=== PATIENT | female | born 1995 | race Caucasian/White ===

== ENCOUNTER 2017-10-20 14:40 | Emergency (ER) | payer SELFPAY ==
[2017-10-20 14:48] VITALS: BP 121/82
--- NOTE | 2017-10-20 16:06 | UC ---
Throat Pain/Nasal Gary HPI - HPI Summary HPI Summary: 21yo WF c/o sore throat associated with nasal congestion PND x 2 days - History of Current Complaint Chief Complaint: UCRespiratory Stated Complaint: THROAT PAIN Time Seen by Provider: 10/20/17 15:22 Hx Obtained From: Patient Hx Last Menstrual Period: 10/01/17 Onset/Duration: Sudden Onset Cough: Nonproductive Associated Signs & Symptoms: Positive: Negative - Allergies/Home Medications Allergies/Adverse Reactions: Allergies Allergy/AdvReac Type Severity Reaction Status Date / Time No Known Allergies Allergy Verified 10/20/17 14:50 PMH/Surg Hx/FS Hx/Imm Hx - Additional Past Medical History Additional PMH: none - Surgical History Surgical History: Yes Surgery Procedure, Year, and Place: r ankle endometriosis. AFIB WITH ABLASION - Family History Known Family History: Positive: None - Social History Alcohol Use: None Substance Use Type: None Smoking Status (MU): Never Smoked Tobacco Review of Systems Constitutional: Negative Skin: Negative Eyes: Negative ENT: Sore Throat, Nasal Discharge, Sinus Congestion Respiratory: Negative Cardiovascular: Negative Gastrointestinal: Negative Genitourinary: Negative Motor: Negative Neurovascular: Negative Musculoskeletal: Negative Neurological: Negative Psychological: Negative Is Patient Immunocompromised?: No All Other Systems Reviewed And Are Negative: Yes Physical Exam Triage Information Reviewed: Yes Vital Signs: Initial Vital Signs Temp 37.4 C 10/20/17 14:43 Pulse 94 10/20/17 14:43 Resp 15 10/20/17 14:43 BP 121/82 10/20/17 14:43 Pulse Ox 100 10/20/17 14:43 Eye Exam: Normal ENT: Positive: Pharyngeal erythema, Nasal congestion, Nasal drainage, TMs normal , Other - one faint 2x3mm ulcer seen around right tonsil, otherwise NO exudates seen Dental Exam: Normal Neck exam: Normal Neck: Positive: 1 Respiratory Exam: Normal Cardiovascular Exam: Normal Abdominal Exam: Normal Musculoskeletal Exam: Normal Neurological Exam: Normal Psychological Exam: Normal Skin Exam: Normal Throat Pain/Nasal Course/Dx - Course Course Of Treatment: Rapid strep neg, salt gargling, pseudophed 12-ER for congestion, throat cx sent out - Differential Dx/Diagnosis Provider Diagnoses: pharyngitis Discharge - Discharge Plan Condition: Stable Disposition: HOME Prescriptions: Pseudoephedrine HCL ER TAB* [Sudafed 12 Hour*] 120 mg PO BID 5 Days #10 tab.er Patient Education Materials: Pharyngitis (ED) Referrals: No Primary Care Phys,NOPCP [Primary Care Provider] - Additional Instructions: as tolerated
== END 2017-10-20 16:40 | disposition home or self-care (01) ==
LOC: UCEAST 14:40
DX: J02.9 Acute pharyngitis, unspecified (principal)
CPT/HCPCS: 87070; 87651; 99212; G0463

== ENCOUNTER 2018-04-08 12:49 | Inpatient (IN) | payer BC ==
[2018-04-08 13:34] LABS: ABS Basophils 0 10^3/ul (0-0.2); ABS Eosinophils 0 10^3/ul (0-0.6); ABS Monocytes 0.7 10^3/ul (0-0.8); ABS Neutrophils 4.4 10^3/ul (1.5-7.7); ABS Nucleated RBC 0 10^3/ul; Eosinophil % 0.6 % (0-6); Hematocrit 39 % (35-47); Hemoglobin 13.3 g/dl (12.0-16.0); Lymphocyte % 27.9 % (25-47); Mean Corpuscular HGB Conc 34 g/dl (31-36); Mean Corpuscular Hemoglobin 32 pg (27-31); Mean Corpuscular Volume 92 fL (80-97); Mean Platelet Volume 8.3 um3 (7.4-10.4); Nucleated Red Blood Cells % 0; Platelet Count 281 10^3/ul (150-450); Red Blood Count 4.21 10^6/ul (4.00-5.40); Red Cell Distribution Width 13 % (10.5-15); White Blood Count 7.1 10^3/ul (3.5-10.8)
[2018-04-08 13:57] LABS: EGFR Non-African American 85.2 (>60)
[2018-04-08 14:10] LABS: Urine Appearance Cloudy; Urine Blood Negative (Negative); Urine Color Yellow; Urine Ketones Negative (Negative); Urine Protein Negative (Negative); Urine Specific Gravity 1.011 (1.010-1.030); Urine Urobilinogen Negative (Negative)
--- NOTE | 2018-04-08 16:04 | ED ---
Estefani Jones Rebecca, scribed for Mckenzie Neves MD on 04/08/18 at 1323 . Psychiatric Complaint - HPI Summary HPI Summary: Pt is a 22 y/o F accompanied by her older sister, Michelle, who presents to ED c/o depression. Pt reports that she is "just really sad all the time" and that she is "having breakdowns every single day" affecting her ability to work. Explains that she is "not herself," which is corroborated by her sister. Presents to the ED "for help." Notes fatigue and SIs described as "it's always there" without a plan as well as intermittent CP. Nurse's triage also reports decreased PO intake and recent weight loss of 18 pounds. Denies HIs and self harm. No PMHx suicide attempts. Has never been to a hospital due to mental health reasons before. Has a psychiatrist out [facility] last seen 1 week ago, and a therapist, Yoana Mendez, in [place] last seen 2 days ago. PMHx depression and anxiety , FHx depression and anxiety (mother). Is currently taking Natazia, Klonopin, Lamictal and Latuda after a recent medication change. LNMP 2 months ago ( believes missed the last month secondary to stress), no chance of . - History Of Current Complaint Chief Complaint: EDMentalHealth Time Seen by Provider: 04/08/18 13:06 Hx Obtained From: Patient, Family/Physically Impaired Teacher - sister Hx Last Menstrual Period: 01/2018 ?: No Onset/Duration: Still Present Timing: Constant Severity Initially: Moderate Severity Currently: Moderate Character: Depressed Aggravating Factor(s): Nothing Alleviating Factor(s): Nothing Associated Signs And Symptoms: Positive: Appetite Change - Decreased Related History: Positive For: Prior Psychiatric Issues - Depression, anxiety Has Suicidal: Reports: Thoughts. Denies: With A Plan Has Homicidal: Denies: Thoughts - Allergies/Home Medications Allergies/Adverse Reactions: Allergies Allergy/AdvReac Type Severity Reaction Status Date / Time No Known Allergies Allergy Verified 10/20/17 14:50 Home Medications: Home Medications Estradiol Valerate/Dienogest [Natazia 28 Tablet] 1 tab PO DAILY 04/08/18 [ History Confirmed 04/08/18] PMH/Surg Hx/FS Hx/Imm Hx Previously Healthy: No Endocrine/Hematology History: Denies: Hx Thyroid Disease Cardiovascular History: Denies: Hx Hypertension Respiratory History: Denies: Hx Asthma Psychiatric History: Reports: Hx Anxiety, Hx Depression - Surgical History Surgery Procedure, Year, and Place: r ankle; endometriosis. AFIB WITH ABLATION Infectious Disease History: No Infectious Disease History: Denies: Hx Clostridium Difficile, Hx Hepatitis, Hx Human Immunodeficiency Virus (HIV), Hx of Known/Suspected MRSA, Hx Shingles, Hx Tuberculosis, Hx Known/ Suspected VRE, Hx Known/Suspected VRSA, History Other Infectious Disease, Traveled Outside the [place] in Last 30 Days - Family History Known Family History: Positive: Other - Depression (mother), anxiety (mother) - Social History Alcohol Use: None Substance Use Type: Reports: None Smoking Status (MU): Never Smoked Tobacco Review of Systems Positive: Fatigue, Other - Recent weight loss Positive: Chest Pain Respiratory: Negative Positive: Other - Decreased PO intake Musculoskeletal: Negative Skin: Negative Neurological: Negative Positive: Depressed, Other - SIs, not herself; NEGATIVE: HIs, self harm All Other Systems Reviewed And Are Negative: Yes Physical Exam - Summary Physical Exam Summary: Appearance: Well-appearing, moderate pain distress, well-nourished, tearful Skin: Warm, color reflects adequate perfusion, diaphoretic Head: Normal Head/Face inspection, atraumatic Eyes: Conjunctiva clear ENT: Normal inspection Neck: Supple, no nodes, no JVD Respiratory: Lungs clear, normal breath sounds, no respiratory distress Cardio: RRR, No murmur, pulses normal, brisk capillary refill Abdomen: Soft, nontender, umbilical piercings Bowel sounds: Present Musculoskeletal: Strength Intact/ROM intact, no calf tenderness, no edema. Psychological: Depressed and tearful Neuro: Alert, muscle tone normal, no focal deficit Triage Information Reviewed: Yes Vital Signs On Initial Exam: Initial Vitals Temp Pulse Resp BP Pulse Ox 98.3 F 110 19 131/104 100 04/08/18 12:50 04/08/18 12:50 04/08/18 12:50 04/08/18 12:50 04/08/18 12:50 Vital Signs Reviewed: Yes Diagnostics - Vital Signs Vital Signs Temp Pulse Resp BP Pulse Ox 04/08/18 12:50 98.3 F 110 19 131/104 100 - Laboratory Lab Results: Lab Results 04/08/18 04/08/18 04/08/18 Range/Units 13:24 13:24 13:38 WBC 7.1 (3.5-10.8) 10^3/ul RBC 4.21 (4.00-5.40) 10^6/ul Hgb 13.3 (12.0-16.0) g/dl Hct 39 (35-47) % MCV 92 (80-97) fL MCH 32 H (27-31) pg MCHC 34 (31-36) g/dl RDW 13 (10.5-15) % Plt Count 281 (150-450) 10^3/ul MPV 8.3 (7.4-10.4) um3 Neut % (Auto) 61.8 (38-83) % Lymph % (Auto) 27.9 (25-47) % Waller % (Auto) 9.2 H (0-7) % Eos % (Auto) 0.6 (0-6) % Baso % (Auto) 0.5 (0-2) % Absolute Neuts (auto) 4.4 (1.5-7.7) 10^3/ul Absolute Lymphs (auto) 2.0 (1.0-4.8) 10^3/ul Absolute Monos (auto) 0.7 (0-0.8) 10^3/ul Absolute Eos (auto) 0 (0-0.6) 10^3/ul Absolute Basos (auto) 0 (0-0.2) 10^3/ul Absolute Nucleated RBC 0 10^3/ul Nucleated RBC % 0 Sodium 141 (135-145) mmol/L Potassium 3.6 (3.5-5.0) mmol/L Chloride 107 (101-111) mmol/L Carbon Dioxide 25 (22-32) mmol/L Anion Gap 9 (2-11) mmol/L BUN 7 (6-24) mg/dL Creatinine 0.83 (0.51-0.95) mg/dL Est GFR ( Amer) 103.1 (>60) Est GFR (Non-Af Amer) 85.2 (>60) BUN/Creatinine Ratio 8.4 (8-20) Glucose 93 (70-100) mg/dL Calcium 9.7 (8.6-10.3) mg/dL Total Bilirubin 0.50 (0.2-1.0) mg/dL AST 19 (13-39) U/L ALT 13 (7-52) U/L Alkaline Phosphatase 47 (34-104) U/L Total Creatine Kinase 88 (10-223) U/L Total Protein 7.5 (6.4-8.9) g/dL Albumin 4.7 (3.2-5.2) g/dL Globulin 2.8 (2-4) g/dL Albumin/Globulin Ratio 1.7 (1-3) TSH 0.78 (0.34-5.60) mcIU/mL Beta HCG, Quant < 0.60 mIU/mL Urine Color Yellow Urine Appearance Cloudy Urine pH 8.0 (5-9) Ur Specific [place] 1.011 (1.010-1.030) Urine Protein Negative (Negative) Urine Ketones Negative (Negative) Urine Blood Negative (Negative) Urine Nitrate Negative (Negative) Urine Bilirubin Negative (Negative) Urine Urobilinogen Negative (Negative) Ur Leukocyte Esterase 1+ A (Negative) Urine WBC (Auto) Trace(0-5/hpf) (Absent) Urine RBC (Auto) 3+(>10/hpf) A (Absent) Ur Squamous Epith Cells Present A (Absent) Urine Bacteria Absent (Absent) Urine Glucose Negative (Negative) Urine Ascorbic Acid * A (Negative) Salicylates < 2.50 (<30) mg/dL Urine Opiates Screen (None Detect) Acetaminophen < 15 mcg/mL Ur Barbiturates Screen (None Detect) Ur Phencyclidine Scrn (None Detect) Ur Amphetamines Screen (None Detect) U Benzodiazepines Scrn (None Detect) Urine Cocaine Screen (None Detect) U Cannabinoids Screen (None Detect) Serum Alcohol < 10 (<10) mg/dL 04/08/18 Range/Units 13:38 WBC (3.5-10.8) 10^3/ul RBC (4.00-5.40) 10^6/ul Hgb (12.0-16.0) g/dl Hct (35-47) % MCV (80-97) fL MCH (27-31) pg MCHC (31-36) g/dl RDW (10.5-15) % Plt Count (150-450) 10^3/ul MPV (7.4-10.4) um3 Neut % (Auto) (38-83) % Lymph % (Auto) (25-47) % Waller % (Auto) (0-7) % Eos % (Auto) (0-6) % Baso % (Auto) (0-2) % Absolute Neuts (auto) (1.5-7.7) 10^3/ul Absolute Lymphs (auto) (1.0-4.8) 10^3/ul Absolute Monos (auto) (0-0.8) 10^3/ul Absolute Eos (auto) (0-0.6) 10^3/ul Absolute Basos (auto) (0-0.2) 10^3/ul Absolute Nucleated RBC 10^3/ul Nucleated RBC % Sodium (135-145) mmol/L Potassium (3.5-5.0) mmol/L Chloride (101-111) mmol/L Carbon Dioxide (22-32) mmol/L Anion Gap (2-11) mmol/L BUN (6-24) mg/dL Creatinine (0.51-0.95) mg/dL Est GFR ( Amer) (>60) Est GFR (Non-Af Amer) (>60) BUN/Creatinine Ratio (8-20) Glucose (70-100) mg/dL Calcium (8.6-10.3) mg/dL Total Bilirubin (0.2-1.0) mg/dL AST (13-39) U/L ALT (7-52) U/L Alkaline Phosphatase (34-104) U/L Total Creatine Kinase (10-223) U/L Total Protein (6.4-8.9) g/dL Albumin (3.2-5.2) g/dL Globulin (2-4) g/dL Albumin/Globulin Ratio (1-3) TSH (0.34-5.60) mcIU/mL Beta HCG, Quant mIU/mL Urine Color Urine Appearance Urine pH (5-9) Ur Specific [place] (1.010-1.030) Urine Protein (Negative) Urine Ketones (Negative) Urine Blood (Negative) Urine Nitrate (Negative) Urine Bilirubin (Negative) Urine Urobilinogen (Negative) Ur Leukocyte Esterase (Negative) Urine WBC (Auto) (Absent) Urine RBC (Auto) (Absent) Ur Squamous Epith Cells (Absent) Urine Bacteria (Absent) Urine Glucose (Negative) Urine Ascorbic Acid (Negative) Salicylates (<30) mg/dL Urine Opiates Screen None detected (None Detect) Acetaminophen mcg/mL Ur Barbiturates Screen None detected (None Detect) Ur Phencyclidine Scrn None detected (None Detect) Ur Amphetamines Screen None detected (None Detect) U Benzodiazepines Scrn None detected (None Detect) Urine Cocaine Screen None detected (None Detect) U Cannabinoids Screen Presumptive positive A (None Detect) Serum Alcohol (<10) mg/dL Result Diagrams: 04/08/18 13:24 04/08/18 13:24 Lab Statement: Any lab studies that have been ordered have been reviewed, and results considered in the medical decision making process. Re-Evaluation - Re-Evaluation First Eval Re-Evaluation Time: 14:09 Change: Unchanged Comment: continues depressed. Remains calm. Medically cleared. 1:1 observation maintained. Course/Dx - Course Course Of Treatment: One-to-one observation initiated once pt states that she is suicidal. Medically cleared for MHE at 1409. Upon completion of MHE and consultation with Dr. Sims, it has been determined that the pt will be admitted voluntarily with Dx of unspecified mood disorder, NOS. - Differential Dx/Clinical Impression Differential Diagnosis/HQI/PQRI: Positive: Anxiety, Bipolar Disorder, Depression , Suicidal Ideation Provider Diagnosis: Unspecified mood [affective] disorder Discharge - Sign-Out/Discharge Documenting (check all that apply): Discharge/Admit/Transfer - Admit - Discharge Plan Condition: Improved [facility] [place] Disposition and Condition Condition: IMPROVED Disposition: Psychiatric Facility [facility] [place] The documentation as recorded by the Estefani sue Rebecca accurately reflects the service I personally performed and the decisions made by Edinson washington Barbara J, MD.
[2018-04-08] MEDS ORDERED: LORazepam TAB(*) 1 MG PO ONE (19:20)
[2018-04-08] MEDS ORDERED: hydrOXYzine HCL TAB* 50 MG PO PRN (21:32)
[2018-04-08] MEDS: Lurasidone(*) 60 MG TAB PO SCH (22:35)
[2018-04-08] MEDS: [UNRECOGNIZED DRUG - OTHER] PO SCH (22:35)
[2018-04-08] MEDS: ESTRADIOL VALERATE PO SCH (22:35)
[2018-04-09] MEDS ORDERED: lamoTRIgine TAB(*) 25 MG PO SCH (09:00)
[2018-04-09] MEDS ORDERED: LORazepam TAB(*) 1 MG PO ONE (15:39)
[2018-04-09] MEDS ORDERED: LORazepam TAB(*) 1 MG ONE (15:39)
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
[2018-04-09] MEDS: Lurasidone(*) 60 MG TAB PO SCH (20:23)
[2018-04-09] MEDS: LORazepam TAB(*) 1 MG PO SCH (20:23)
[2018-04-09] MEDS: [UNRECOGNIZED DRUG - OTHER] PO SCH (20:24)
[2018-04-09] MEDS: ESTRADIOL VALERATE PO SCH (20:24)
[2018-04-10] MEDS: LORazepam TAB(*) 1 MG PO SCH ×3 (08:15→20:10)
[2018-04-10] MEDS: lamoTRIgine TAB(*) 25 MG PO SCH (08:15)
[2018-04-10] MEDS: [UNRECOGNIZED DRUG - OTHER] PO SCH (20:11)
[2018-04-10] MEDS: ESTRADIOL VALERATE PO SCH (20:11)
[2018-04-10] MEDS: Lurasidone(*) 60 MG TAB PO SCH (20:11)
[2018-04-11] MEDS: LORazepam TAB(*) 1 MG PO SCH (08:07)
[2018-04-11] MEDS: lamoTRIgine TAB(*) 25 MG PO SCH (08:07)
[2018-04-11 09:01] VITALS: BP 101/61
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
== END 2018-04-11 12:30 | disposition home or self-care (01) | DRG 754 ==
LOC: ED 12:49 → BSU 20:49
PROVIDERS: ADMIT Psychiatry & Neurology Psychiatry; ATTEND Psychiatry & Neurology Psychiatry
DX: F32.9 Major depressive disorder, single episode, unspecified (principal); R45.851 Suicidal ideations; R07.9 Chest pain, unspecified; F41.9 Anxiety disorder, unspecified; F12.90 Cannabis use, unspecified, uncomplicated; Z81.8 Family history of other mental and behavioral disorders; Z81.3 Family history of other psychoactive substance abuse and dependence
CPT/HCPCS: 36415; 80053; 80061; 80175; 80307; 80320; 80329; 81003; 81015; 82550; 83036; 84443; 84702; 85025; 87086; 99222; 99238; 99285; A9270-GY; G0480

== ENCOUNTER 2018-11-07 10:09 | Emergency (ER) | payer BC ==
[2018-11-07 10:24] VITALS: BP 130/81
[2018-11-07] MEDS ORDERED: Ketorolac INJ* 30 MG/ML 1 ML VIAL IM ONE (10:38)
[2018-11-07] MEDS ORDERED: Ondansetron ODT TAB* 4 MG PO ONE (10:38)
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
== END 2018-11-07 12:18 | disposition home or self-care (01) ==
LOC: UCCORT 10:09
DX: R51 Headache (principal); M54.2 Cervicalgia; M54.89 Other dorsalgia; R11.10 Vomiting, unspecified; R42 Dizziness and giddiness; F41.9 Anxiety disorder, unspecified; F32.9 Major depressive disorder, single episode, unspecified; Z79.899 Other long term (current) drug therapy; Z81.8 Family history of other mental and behavioral disorders; Z88.8 Allergy status to other drugs, medicaments and biological substances; V49.9XXA Car occupant (driver) (passenger) injured in unspecified traffic accident, initial encounter; Y92.9 Unspecified place or not applicable
CPT/HCPCS: 72020; 72050; 72080; 96372; 99213; A9270-GY; G0463; J1885